=== PATIENT | male | born 1980 | race Caucasian/White ===

== ENCOUNTER → 2021-12-21 | Day surgery (SDC) | payer BC ==
[~2021-12-21] MED LIST: ACETAMINOPHEN 1000 MG/100 ML IV ONE; DEXAMETHASONE SOD PHOS INJ 4 MG/ML SDV ONE; FENTANYL CITRATE/PF 100MCG/2 ML INJ ONE; KETOROLAC TROMETHAMINE 30 MG/ML VIAL ONE; LIDOCAINE HCL 2% LOCAL INJ 5 ML SDV VIAL INJ ONE; MIDAZOLAM HCL 2 MG/2 ML VIAL ONE; ONDANSETRON HCL INJ 2MG/ML 2ML 2 MG/ML VIAL ONE; POVIDONE IODINE 0.05% 0.05 % ML PO ONE; PROPOFOL IV EMULSION 10 MG/ML 20 ML VIAL ONE; SEVOFLURANE INHAL SOLN 250 ML PEN BTL ONE
[2021-12-21 08:20] VITALS: BP 141/90
== END | disposition home or self-care (01) ==
LOC: OR 05:29
PROVIDERS: ATTEND Specialist
DX: M23.232 Derangement of other medial meniscus due to old tear or injury, left knee (principal); M23.8X2 Other internal derangements of left knee; M94.262 Chondromalacia, left knee; M65.9 Synovitis and tenosynovitis, unspecified; F17.210 Nicotine dependence, cigarettes, uncomplicated; X58.XXXA Exposure to other specified factors, initial encounter; Z01.810 Encounter for preprocedural cardiovascular examination; Z01.812 Encounter for preprocedural laboratory examination; Z20.822 Contact with and (suspected) exposure to COVID-19; Z68.39 Body mass index [BMI] 39.0-39.9, adult
CPT/HCPCS: 29881; 93005; J0131; J0690; J1100; J1885; J2001; J2250; J2405; J2704; J3010; U0002